=== PATIENT | female | born 1945 | race Caucasian/White ===

== ENCOUNTER 2017-01-05 13:26 | Outpatient (CLI) | payer MEDICARE, OTHER | END 2017-01-05 13:27 | disposition home or self-care (01) | LOC: HPCALD 13:26 | PROVIDERS: ATTEND Family Medicine | DX: L97.921 Non-pressure chronic ulcer of unspecified part of left lower leg limited to breakdown of skin (principal) | CPT/HCPCS: 87070; 87205 ==

== ENCOUNTER 2017-07-11 12:03 | Emergency (ER) | payer MEDICARE, OTHER ==
[2017-07-11] MEDS ORDERED: Ibuprofen 800 MG TAB ONE (12:47)
[2017-07-11] MEDS ORDERED: HYDROcodone/Acetaminophen 10/325 mg Tablet ONE (12:47)
--- NOTE | 2017-07-11 14:15 | RAD ---
RIGHT WRIST THREE VIEWS: 07/11/2017 COMPARISON: 11/02/2015 FINDINGS: No acute fracture is identified. Prominent degenerative changes in the first carpometacarpal joint are present, as before. The distance between the scaphoid and lunate is slightly increased at 2 mm, but this is still less than the 2.5 mm value usually used to signify a scapholunate dissociation. Overall, there have been no adverse changes in the interval. No acute traumatic findings were appre ciated. IMPRESSION: 1. No acute findings. 2. Slightly increased distance between the scaphoid and lunate, compared to 2015, but the distance is still within normal limits. This may or may not be significant. 3. 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 POS: HOME
== END 2017-07-11 12:55 | disposition home or self-care (01) ==
LOC: BURERS 12:03
DX: S63.501A Unspecified sprain of right wrist, initial encounter (principal); E66.9 Obesity, unspecified; E78.5 Hyperlipidemia, unspecified; I10 Essential (primary) hypertension; E11.9 Type 2 diabetes mellitus without complications; X50.1XXA Overexertion from prolonged static or awkward postures, initial encounter

== ENCOUNTER 2022-08-16 11:41 | Emergency (ER) | payer MEDICARE, OTHER ==
[~2022-08-16 11:41] MED LIST: Iopamidol 370 76% 100 ML VIAL ONE
[2022-08-16 12:26] LABS: #Basophils 0.1 thou/uL (0.0-0.2); #Eosinphils 0.3 thou/uL (0.0-0.7); #Lymphocytes 1.8 thou/uL (1.20-3.40); #Monocytes 0.2 thou/uL (0.11-0.59); #Neutrophils 4.8 thou/uL (1.40-6.50); %Basophils 0.9 % (0.0-1.0); %Eosinophils 4.5 % (0.0-10.0); %Lymphocytes 24.7 % (21.0-51.0); %Monocytes 3.4 % (0.0-10.0); %Neutrophils 66.6 % (42.0-75.0); Hemoglobin 12.9 g/dL (12.0-16.0); Mean Corpuscular HGB CONC 31.4 g/dL (32.0-36.0); Mean Corpuscular Hemoglobin 27.7 pg (27.0-31.0); Mean Corpuscular Volume 88.1 fl (78.0-98.0); Mean Platelet Volume 7.4 fL (7.4-10.4); Platelet Count 277 10x3/uL (130-400); RBC Distribution Width 13.5 % (11.5-14.5); Red Blood Cell (RBC) Count 4.66 mill/uL (4.20-5.40); White Blood Cell (WBC) Count 7.2 10x3/uL (4.8-10.8)
[2022-08-16 12:43] LABS: ALT (SGPT) 15 U/L (8-55); AST (SGOT) 16 U/L (5-34); Albumin 3.6 g/dL (3.4-4.8); Alkaline Phosphatase 74 U/L (40-110); Anion Gap 16 mmol/L (10-20); BUN (Urea Nitrogen) 18 mg/dL (9.8-20.1); Bilirubin, Total 0.6 mg/dL (0.2-1.2); Calc. Creatinine Clearance 0 mL/min (70-130); Calcium 8.9 mg/dL (7.8-10.44); Carbon Dioxide 33 mmol/L (23-31); Chloride 98 mmol/L (98-107); Estimated GFR 56; Globulin 3.5 g/dL (2.4-3.5); Glucose 154 mg/dL (83-110); Potassium 4.1 mmol/L (3.5-5.1); Protein, Total 7.1 g/dL (5.8-8.1); Sodium 143 mmol/L (136-145)
== END 2022-08-16 14:47 | disposition home or self-care (01) ==
LOC: BURERS 11:41
DX: R10.12 Left upper quadrant pain (principal); I10 Essential (primary) hypertension; E66.9 Obesity, unspecified; E11.9 Type 2 diabetes mellitus without complications; E78.5 Hyperlipidemia, unspecified
CPT/HCPCS: 74177; 80053; 83605; 83880; 84484; 85025; 93005; Q9967